=== PATIENT | female | born 1945 | race Two or more races ===

== ENCOUNTER 2021-11-01 08:06 | Outpatient (CLI) | payer OTHER | END 2021-11-01 08:07 | disposition home or self-care (01) | LOC: NUCLEAR 08:06 | PROVIDERS: ATTEND Internal Medicine Cardiovascular Disease | DX: I20.8 Other forms of angina pectoris (principal); E78.00 Pure hypercholesterolemia, unspecified | CPT/HCPCS: 78454; 93017; A9500; J0153 ==